=== PATIENT | male | born 1965 | race Two or more races ===

== ENCOUNTER 2021-01-30 04:18 | Inpatient (IN) | payer SELFPAY ==
[~2021-01-30] VITALS: Ht 180.3 cm; Wt 94.0 kg
[2021-01-30 05:19] LABS: Basophils # (auto) 0 10 ^3/uL (0-0.2); Basophils % (auto) 0.3 % (0.0-2.0); Eosinophils # (auto) 0.1 10 ^3/uL (0-0.8); Eosinophils % (auto) 1.6 % (0.0-7.0); Hematocrit 45.8 % (41.0-53.0); Hemoglobin 15.8 g/dL (13.5-17.5); Lymphocytes # (auto) 1.3 10 ^3/uL (0.4-5.4); Lymphocytes % (auto) 19.7 % (10.0-50.0); Mean Corpuscular Hemoglobin 30.8 pg (28.0-32.0); Mean Corpuscular Hgb Conc. 34.5 g/dL (32.0-36.0); Mean Corpuscular Volume 89.3 fL (80.0-100.0); Monocytes # (auto) 0.4 10 ^3/uL (0-1.3); Monocytes % (auto) 6.1 % (0.0-12.0); Neutrophils # (auto) 4.9 10 ^3/uL (1.6-8.6); Neutrophils % (auto) 72.3 % (37.0-80.0); Nucleated Red Blood Cells % 0.1 %; Platelet Count (auto) 192 10^3/uL (140-450); Red Blood Cells 5.13 10^6/uL (4.5-5.90); Red Cell Distribution Width 13.3 % (11.8-14.3); White Blood Cell 6.8 10^3/uL (4.4-10.8)
[2021-01-30 05:30] LABS: Urine Amorphous Crystal FEW /hpf (None Seen); Urine Bacteria FEW /hpf (None Seen); Urine Blood 3+ /uL (Negative); Urine Hyaline Cast FEW /lpf (0 - 2); Urine Mucus FEW (None Seen); Urine Specific Gravity 1.022 (1.001-1.035); Urine WBC 1 /hpf (0 - 3)
[2021-01-30 05:37] LABS: Albumin 3.7 g/dL (3.4-5.0); Anion Gap 8 (5-15); Blood Urea Nitrogen 19 mg/dL (7-18); Calcium 8.4 mg/dL (8.5-10.1); Carbon Dioxide 25 mmol/L (21-32); Chloride 108 mmol/L (98-107); Glucose 120 mg/dL (74-106); INR 0.98 (0.9-1.15); Lipase 99 U/L (73-393); Magnesium 2.2 mg/dL (1.6-2.6); Potassium 3.7 mmol/L (3.5-5.1); Sodium 141 mmol/L (136-145)
[2021-01-30 05:43] LABS: Alanine Aminotransferase 36 U/L (16-61); Alkaline Phosphatase 81 U/L (45-117); Aspartate Aminotransferase 19 U/L (15-37); BUN/Creatinine Ratio 20.4; Bilirubin, Total 0.6 mg/dL (0.2-1.0); GFR African American 108 mL/min; GFR Non-African American 90 mL/min; Total Protein 7.1 g/dL (6.4-8.2)
[2021-01-30] MEDS ORDERED: SODIUM CHLORIDE 0.9% 1,000 ML IVB ONE (06:45)
[2021-01-30] MEDS ORDERED: KETOROLAC TROMETH 30 MG/ML 1ML VIAL IV ONE (06:45)
[2021-01-30] MEDS ORDERED: METOCLOPRAMIDE HCL 5MG/ml INJ 2ml VIAL IV ONE (06:45)
[2021-01-30] MEDS ORDERED: TAMSULOSIN HYDROCHLORIDE 0.4 MG CAP PO ONE (07:30)
[2021-01-30] MEDS ORDERED: NITROGLYCERIN 0.4 MG SL TAB SL PRN (09:15)
[2021-01-30] MEDS ORDERED: ONDANSETRON HCL 4 MG/2 ML VIAL IV PRN (09:15)
[2021-01-30] MEDS ORDERED: ACETAMINOPHEN 500 MG TAB PO PRN (09:15)
[2021-01-30] MEDS ORDERED: MORPHINE SULF INJ 2 MG/ML SYRINGE 1ML IV PRN ×2 (09:15)
[2021-01-30] MEDS ORDERED: HYDROcodone-ACET 5/325MG TAB PO PRN (09:15)
[2021-01-30] MEDS: FAMOTIDINE 20 MG TAB PO SCH (09:30)
[2021-01-30] MEDS: DOCUSATE SOD 100 MG CAP PO SCH ×2 (09:31→21:00)
[2021-01-30] MEDS: SODIUM CHLORIDE 0.9% 1,000 ML IV SCH ×2 (09:31→18:16)
[2021-01-30 13:00] VITALS: BP 133/87
[2021-01-30] MEDS ORDERED: SODIUM CHLORIDE 0.9% 1,000 ML IV ONE (13:45)
[2021-01-30] MEDS ORDERED: MANNITOL FTV 25% 12.5 GM/50 ML 50 ML IV ONE (13:45)
[2021-01-30 17:00] VITALS: BP 114/69
[2021-01-30 22:00] VITALS: BP 125/72
[2021-01-31] MEDS: SODIUM CHLORIDE 0.9% 1,000 ML IV SCH ×2 (02:11→09:10)
[2021-01-31 05:00] VITALS: BP 145/93
[2021-01-31 08:52] VITALS: BP 146/83
[2021-01-31] MEDS: DOCUSATE SOD 100 MG CAP PO SCH (09:11)
[2021-01-31] MEDS: FAMOTIDINE 20 MG TAB PO SCH (09:11)
[2021-01-31 13:05] VITALS: BP 136/89
[2021-01-31] MEDS ORDERED: TAMSULOSIN HYDROCHLORIDE 0.4 MG CAP PO SCH (18:00)
== END 2021-01-31 13:00 | disposition home or self-care (01) | DRG 694 ==
LOC: ER 04:18 → EDBD 04:18 → OVERFLOW 04:19 → EAST 11:05
PROVIDERS: ADMIT Nurse Practitioner Acute Care; ATTEND Family Medicine
DX: N13.30 Unspecified hydronephrosis (principal); N20.1 Calculus of ureter; Z20.822 Contact with and (suspected) exposure to COVID-19
CPT/HCPCS: 36415; 74176; 80053; 81001; 83605; 83690; 83735; 84484; 85025; 85610; 87086; 87426; 93005; 96361; 96374; G0378; J1885

== ENCOUNTER 2021-02-01 15:49 | Inpatient (IN) | payer SELFPAY ==
[~2021-02-01] VITALS: Ht 177.8 cm; Wt 92.0 kg
[2021-02-01] MEDS ORDERED: KETOROLAC TROMETH 30 MG/ML 1ML VIAL IV ONE (16:00)
[2021-02-01] MEDS ORDERED: SODIUM CHLORIDE 0.9% 1,000 ML IV ONE ×2 (16:00)
[2021-02-01] MEDS ORDERED: ONDANSETRON HCL 4 MG/2 ML VIAL IV ONE (16:00)
[2021-02-01] MEDS ORDERED: TAMSULOSIN HYDROCHLORIDE 0.4 MG CAP PO ONE (16:15)
[2021-02-01 17:53] LABS: Basophils # (auto) 0 10 ^3/uL (0-0.2); Basophils % (auto) 0.3 % (0.0-2.0); Eosinophils # (auto) 0 10 ^3/uL (0-0.8); Eosinophils % (auto) 0.2 % (0.0-7.0); Hematocrit 47.6 % (41.0-53.0); Hemoglobin 16.3 g/dL (13.5-17.5); Lymphocytes # (auto) 0.8 10 ^3/uL (0.4-5.4); Lymphocytes % (auto) 6.7 % (10.0-50.0); Mean Corpuscular Hemoglobin 30.8 pg (28.0-32.0); Mean Corpuscular Hgb Conc. 34.3 g/dL (32.0-36.0); Mean Corpuscular Volume 89.9 fL (80.0-100.0); Monocytes # (auto) 0.6 10 ^3/uL (0-1.3); Neutrophils # (auto) 10.1 10 ^3/uL (1.6-8.6); Neutrophils % (auto) 87.8 % (37.0-80.0); Platelet Count (auto) 206 10^3/uL (140-450); White Blood Cell 11.6 10^3/uL (4.4-10.8)
[2021-02-01 18:10] LABS: Alanine Aminotransferase 34 U/L (16-61); Albumin 4.1 g/dL (3.4-5.0); Anion Gap 7 (5-15); Aspartate Aminotransferase 20 U/L (15-37); BUN/Creatinine Ratio 12.1; Blood Urea Nitrogen 12 mg/dL (7-18); Calcium 8.9 mg/dL (8.5-10.1); Carbon Dioxide 26 mmol/L (21-32); Chloride 108 mmol/L (98-107); GFR African American 101 mL/min; GFR Non-African American 83 mL/min; Glucose 89 mg/dL (74-106); Potassium 3.6 mmol/L (3.5-5.1); Sodium 141 mmol/L (136-145)
[2021-02-01 18:15] LABS: Alkaline Phosphatase 85 U/L (45-117); Bilirubin, Total 0.6 mg/dL (0.2-1.0)
[2021-02-01 19:11] LABS: Urine Bacteria NONE SEEN /hpf (None Seen); Urine Blood 2+ /uL (Negative); Urine Specific Gravity 1.007 (1.001-1.035); Urine WBC 1 /hpf (0 - 3)
[2021-02-02] MEDS ORDERED: ACETAMINOPHEN 325 MG TAB PO PRN (01:15)
[2021-02-02] MEDS ORDERED: DOCUSATE SOD 100 MG CAP PO PRN (01:15)
[2021-02-02] MEDS ORDERED: NITROGLYCERIN 0.4 MG SL TAB SL PRN (01:15)
[2021-02-02] MEDS ORDERED: MORPHINE SULFATE 4 MG/ML SYR/VIAL IV PRN (01:15)
[2021-02-02] MEDS ORDERED: MORPHINE SULF INJ 2 MG/ML SYRINGE 1ML IV PRN (01:15)
[2021-02-02] MEDS ORDERED: ONDANSETRON HCL 4 MG/2 ML VIAL IV PRN (01:15)
[2021-02-02] MEDS ORDERED: D5W/SOD CHL 0.45% 1,000 ML IV SCH (01:15)
[2021-02-02] MEDS ORDERED: HYDROcodone-ACET 5/325MG TAB PO PRN (01:15)
[2021-02-02] MEDS ORDERED: DOXYCYCLINE 100MG/250ML 250 ML IV SCH (02:00)
[2021-02-02] MEDS ORDERED: cefTRIAXone 1GM/50ML D5W 50 ML IV SCH (02:00)
[2021-02-02 02:17] VITALS: BP 146/84
[2021-02-02 05:19] VITALS: BP 146/84
[2021-02-02] MEDS: ZINC SULFATE 220mg CAP or TAB PO SCH (08:02)
[2021-02-02] MEDS: ASCORBIC ACID 500 MG TAB PO SCH ×2 (08:03→21:46)
[2021-02-02] MEDS: MULTIPLE VITAMIN TAB PO SCH (08:03)
[2021-02-02 09:00] VITALS: BP 147/83
[2021-02-02 09:19] LABS: Basophils # (auto) 0 10 ^3/uL (0-0.2); Basophils % (auto) 0.4 % (0.0-2.0); Eosinophils # (auto) 0.1 10 ^3/uL (0-0.8); Eosinophils % (auto) 1.3 % (0.0-7.0); Hemoglobin 15.1 g/dL (13.5-17.5); Lymphocytes # (auto) 1.3 10 ^3/uL (0.4-5.4); Lymphocytes % (auto) 24.7 % (10.0-50.0); Mean Corpuscular Hemoglobin 31.6 pg (28.0-32.0); Mean Corpuscular Hgb Conc. 35.2 g/dL (32.0-36.0); Mean Corpuscular Volume 89.7 fL (80.0-100.0); Monocytes # (auto) 0.4 10 ^3/uL (0-1.3); Monocytes % (auto) 8.2 % (0.0-12.0); Neutrophils # (auto) 3.4 10 ^3/uL (1.6-8.6); Neutrophils % (auto) 65.4 % (37.0-80.0); Nucleated Red Blood Cells % 0.1 %; Platelet Count (auto) 175 10^3/uL (140-450); Red Blood Cells 4.79 10^6/uL (4.5-5.90); White Blood Cell 5.2 10^3/uL (4.4-10.8)
[2021-02-02 09:28] LABS: Albumin 3.5 g/dL (3.4-5.0); Calcium 8.1 mg/dL (8.5-10.1)
[2021-02-02 09:40] LABS: BUN/Creatinine Ratio 14.1; Bilirubin, Total 0.7 mg/dL (0.2-1.0)
[2021-02-02] MEDS ORDERED: FAMOTIDINE (10MG/ML) 2ML VL IV SCH (10:00)
[2021-02-02] MEDS ORDERED: DexAMETHasone SOD PHOS 10MG/1ML VIAL INJ IV SCH (10:00)
[2021-02-02] MEDS ORDERED: CHOLECALCIFEROL (VITD3) 1,000UNIT=25mCg TAB PO SCH (10:00)
[2021-02-02] MEDS ORDERED: ENOXAPARIN SOD 80 MG/0.8ML SYRINGE SC SCH (10:00)
[2021-02-02] MEDS ORDERED: MANNITOL FTV 25% 12.5 GM/50 ML 50 ML IV ONE (12:45)
[2021-02-02 13:00] VITALS: BP 156/80
[2021-02-02] MEDS: D5W/SOD CHL 0.45% 1,000 ML IV SCH ×2 (13:43→21:11)
[2021-02-02] MEDS ORDERED: SODIUM CHLORIDE 0.9% 1,000 ML IV ONE (13:45)
[2021-02-02 17:00] VITALS: BP 132/76
[2021-02-02] MEDS ORDERED: TAMSULOSIN HYDROCHLORIDE 0.4 MG CAP PO SCH (18:00)
[2021-02-02] MEDS: DOXYCYCLINE 100 MG TAB/CAP PO SCH (21:11)
[2021-02-02] MEDS: FAMOTIDINE 20 MG TAB PO SCH (21:11)
[2021-02-02 22:14] VITALS: BP 136/86
[2021-02-03] MEDS: D5W/SOD CHL 0.45% 1,000 ML IV SCH ×2 (04:15→12:18)
[2021-02-03 05:10] VITALS: BP 126/75
[2021-02-03 06:21] LABS: Basophils # (auto) 0 10 ^3/uL (0-0.2); Basophils % (auto) 0.2 % (0.0-2.0); Eosinophils # (auto) 0 10 ^3/uL (0-0.8); Eosinophils % (auto) 0.3 % (0.0-7.0); Hematocrit 41.6 % (41.0-53.0); Hemoglobin 14.8 g/dL (13.5-17.5); Lymphocytes # (auto) 1.4 10 ^3/uL (0.4-5.4); Lymphocytes % (auto) 22.2 % (10.0-50.0); Mean Corpuscular Hemoglobin 31.7 pg (28.0-32.0); Mean Corpuscular Hgb Conc. 35.5 g/dL (32.0-36.0); Mean Corpuscular Volume 89.3 fL (80.0-100.0); Monocytes # (auto) 0.5 10 ^3/uL (0-1.3); Monocytes % (auto) 7.2 % (0.0-12.0); Neutrophils # (auto) 4.6 10 ^3/uL (1.6-8.6); Neutrophils % (auto) 70.1 % (37.0-80.0); Nucleated Red Blood Cells % 0.1 %; Platelet Count (auto) 167 10^3/uL (140-450); Red Blood Cells 4.65 10^6/uL (4.5-5.90); Red Cell Distribution Width 12.6 % (11.8-14.3); White Blood Cell 6.5 10^3/uL (4.4-10.8)
[2021-02-03 06:37] LABS: Potassium 3.6 mmol/L (3.5-5.1)
[2021-02-03 06:44] LABS: Albumin 3.2 g/dL (3.4-5.0); BUN/Creatinine Ratio 19.7; Bilirubin, Total 0.5 mg/dL (0.2-1.0); Calcium 8.4 mg/dL (8.5-10.1); Total Protein 6.4 g/dL (6.4-8.2)
[2021-02-03] MEDS: ZINC SULFATE 220mg CAP or TAB PO SCH (08:06)
[2021-02-03] MEDS: MULTIPLE VITAMIN TAB PO SCH (08:07)
[2021-02-03] MEDS: DOXYCYCLINE 100 MG TAB/CAP PO SCH (08:08)
[2021-02-03] MEDS: FAMOTIDINE 20 MG TAB PO SCH (08:08)
[2021-02-03] MEDS: ASCORBIC ACID 500 MG TAB PO SCH (08:09)
[2021-02-03 09:00] VITALS: BP 131/82
[2021-02-03] MEDS ORDERED: CHOLECALCIFEROL (VITD3) 1,000UNIT=25mCg TAB PO SCH (10:00)
[2021-02-03 11:27] LABS: INR 1.01 (0.9-1.15); Partial Thromboplastin Time 25.5 sec (23.0-31.2)
[2021-02-03] MEDS ORDERED: DOXY-286 PO (11:44)
[2021-02-03] MEDS ORDERED: CHOL20007 PO (11:44)
[2021-02-03] MEDS ORDERED: ASCO500T11 PO (11:44)
[2021-02-03 12:28] VITALS: BP 139/82
[2021-02-03 12:36] VITALS: BP 136/70
== END 2021-02-03 13:20 | disposition home or self-care (01) | DRG 178 ==
LOC: EDBD 15:49 → EDUNIT# 15:49 → ER 15:49 → TELE 02-02 01:16 → TELE-EAST 02-02 02:28 → EAST 02-02 14:09
PROVIDERS: ADMIT Nurse Practitioner Family; ATTEND Nurse Practitioner Family
DX: U07.1 COVID-19 (principal); N13.2 Hydronephrosis with renal and ureteral calculous obstruction; D72.829 Elevated white blood cell count, unspecified; N40.0 Benign prostatic hyperplasia without lower urinary tract symptoms; Z87.442 Personal history of urinary calculi
CPT/HCPCS: 36415; 71045; 74018; 74176; 80053; 81001; 84484; 85025; 85610; 85730; 87426; 96361; 96374; 96375; G0378; J0696; J1100; J1885; J2405; J3490